=== PATIENT | male | born 1990 | race Hispanic/Latino ===

== ENCOUNTER 2020-12-18 17:27 | Emergency (ER) | payer OTHER ==
[2020-12-18 18:13] LABS: Absolute Lymphocytes (CBC) 1.1 K/uL (0.7-4.9); Basophils % 0.4 % (0-1.3); Hematocrit 39.5 % (39.6-49.0); Lymphocytes % 11.4 % (15.3-44.8); MPV 8.2 fL (7.6-11.3); RBC Red Blood Cell Count 4.41 M/uL (4.33-5.43)
[2020-12-18 18:19] LABS: Protime INR 1.06
--- NOTE | 2020-12-18 18:24 | RAD REPORT ---
EXAM DESCRIPTION: CT - CTHCSPWOC - 12/18/2020 6:08 pm CLINICAL HISTORY: Trauma, head and neck injury. seizure, head injury COMPARISON: No comparisons TECHNIQUE: Axial 5 mm thick images of the head were obtained. Axial 2 mm thick images of the cervical spine were obtained with sagittal and coronal reconstruction images generated and reviewed. All CT scans are performed using dose optimization technique as appropriate and may include automated exposure control or mA/KV adjustment according to patient size. FINDINGS: CT HEAD WITHOUT CONTRAST: No acute hemorrhage, hydrocephalus or extra-axial collection is identified.No areas of brain edema or midline shift. The paranasal sinuses and mastoids are clear.The calvarium is intact. CT CERVICAL SPINE WITHOUT CONTRAST: No fracture or subluxation.No prevertebral soft tissues swelling is identified. IMPRESSION: No acute intracranial or cervical spine findings.
[2020-12-18 18:31] LABS: ALT/SGPT 101 U/L (12-78); AST/SGOT 39 U/L (15-37); Alkaline Phosphatase 83 U/L (45-117); BUN Blood Urea Nitrogen 13 mg/dL (7-18); Bicarbonate 28 mmol/L (21-32); Bilirubin Direct < 0.1 mg/dL (0-0.2); Bilirubin Total 0.3 mg/dL (0.2-1.0); Glucose Level 95 mg/dL (74-106); Potassium 3.9 mmol/L (3.5-5.1); Protein, Total 7.3 g/dL (6.4-8.2); Sodium Level 142 mmol/L (136-145)
[2020-12-18 19:49] LABS: Urine Blood Trace-intact (Negative); Urine Glucose Negative (Negative); Urine Protein Negative (Negative); Urine Specific Gravity 1.015 (1.005-1.030); Urine pH 7.5 (5.0-7.0)
[2020-12-18] MEDS ORDERED: ACETAMINOPHEN 500 MG TAB ONE (21:13)
[2020-12-18] MEDS ORDERED: NA CHLORIDE 0.9% 1,000 ML ONE (21:30)
[2020-12-18 22:25] LABS: Barbiturates NEGATIVE (NEGATIVE); Benzodiazepines NEGATIVE (NEGATIVE); Cocaine NEGATIVE (NEGATIVE); METHAMPHETAM NEGATIVE (NEGATIVE); Methadone NEGATIVE (NEGATIVE); Opiates NEGATIVE (NEGATIVE); Phencyclidine NEGATIVE (NEGATIVE); THC Cannibis NEGATIVE (NEGATIVE)
--- NOTE | 2020-12-18 22:36 | EDPHYS ---
Physician Documentation [facility] Name: Gera Stephens Age: 30 yrs Sex: Male : 1990 Arrival Date: 12/18/2020 Time: 17:32 Bed 30 Private MD: ED Physician Humberto Rossi HPI: 12/18 17:46 This 30 yrs old Male presents to ER via EMS with complaints of Seizure. jmm 17:46 Character of seizure(s): Unknown. Seizure onset: just prior to arrival. Associated jmm injury: Head/face:. Current symptoms: headache, that is mild. This is a 30-year-old male that presents to the ED with complaints of head injury. Patient believes he had a seizure. Denies other known injury.. - Immunization history:: Last tetanus immunization: up to date Flu vaccine is up to date. - Social history:: Smoking status: Patient denies any tobacco usage or history of. ROS: 17:46 Constitutional: Negative for fever, chills, and weight loss, Cardiovascular: Negative jmm for chest pain, palpitations, and edema, Respiratory: Negative for shortness of breath, cough, wheezing, and pleuritic chest pain. 17:46 Neuro: Positive for headache. 17:46 All other systems are negative. Exam: 17:46 Constitutional: This is a well developed, well nourished patient who is awake, alert, jmm and in no acute distress. 17:46 Eyes: EOMI, no conjunctival erythema appreciated ENT: Moist Mucus Membranes Neck: Trachea midline, Supple Chest/axilla: Normal chest wall appearance and motion. Cardiovascular: Regular rate and rhythm. No edema appreciated Respiratory: Normal respirations, no respiratory distress appreciated Abdomen/GI: Non distended, soft Back: Normal ROM Skin: General appearance color normal MS/ Extremity: Moves all extremities, no obvious deformities appreciated, no edema noted to the lower extremities 17:46 Head/face: Noted is abrasion(s), that are mild, of the right occipital area. 17:46 Neuro: Orientation: is normal, Mentation: is normal, Memory: is normal. Vital Signs: 17:33 BP 123 / 70; Pulse 67; Resp 16; Pulse Ox 100% on R/A; Weight 61.23 kg; Height 5 ft. 7 zb in. (170.18 cm); Pain 7/10; 18:56 Temp 98.0; ll1 22:47 BP 120 / 68; Pulse 70; Resp 18; Pulse Ox 99% ; ea 17:33 Body Mass Index 21.14 (61.23 kg, 170.18 cm) zb Charlotte Coma Score: 18:04 Eye Response: spontaneous(4). Verbal Response: oriented(5). Motor Response: obeys ll1 commands(6). Total: 15. MDM: 17:46 Patient medically screened. [facility] 22:35 Data reviewed: vital signs, nurses notes. Counseling: I had a detailed discussion with caesar the patient and/or guardian regarding: the historical points, exam findings, and any diagnostic results supporting the discharge/admit diagnosis, lab results, radiology results, the need for outpatient follow up, to return to the emergency department if symptoms worsen or persist or if there are any questions or concerns that arise at home. ED course: Labs and radiologic studies are unremarkable. Patient has had no seizure type activity while in the ED. Patient is advised to follow-up with his primary care provider and otherwise given strict return precautions. Patient understood and agrees plan of care.. 12/18 17:46 Order name: Acetaminophen [facility] 12/18 17:46 Order name: Basic Metabolic Panel [facility] 12/18 17:46 Order name: CBC with Diff; Complete Time: 18:19 [facility] 12/18 17:46 Order name: ETOH Level; Complete Time: 18:48 [facility] 12/18 17:46 Order name: Hepatic Function; Complete Time: 18:48 [facility] 12/18 17:46 Order name: PT-INR; Complete Time: 18:27 [facility] 12/18 17:46 Order name: CT Head C Spine; Complete Time: 18:27 [facility] 12/18 17:46 Order name: Ptt, Activated; Complete Time: 18:27 [facility] 12/18 17:46 Order name: Salicylate; Complete Time: 19:43 [facility] 12/18 17:46 Order name: Urine Drug Screen; Complete Time: 22:26 [facility] 12/18 17:46 Order name: Acetaminophen Level; Complete Time: 18:48 [facility] 12/18 17:46 Order name: Basic Metabolic Panel; Complete Time: 18:48 [facility] 12/18 19:49 Order name: Urine Dipstick-Ancillary; Complete Time: 19:52 [facility] 12/18 17:46 Order name: EKG; Complete Time: 17:47 [facility] 12/18 17:46 Order name: EKG - Nurse/Tech; Complete Time: 18:44 [facility] 12/18 17:46 Order name: IV Saline Lock; Complete Time: 17:47 [facility] 12/18 17:46 Order name: Labs collected and sent; Complete Time: 17:47 [facility] 12/18 17:46 Order name: Suicide Screening ([place]); Complete Time: 18:40 [facility] 12/18 17:46 Order name: Urine Dipstick-Ancillary (obtain specimen); Complete Time: 20:00 [facility] Administered Medications: 21:09 Drug: NS 0.9% 1000 ml Route: IV; Rate: 1 bolus; Site: left antecubital; ea 22:00 Follow up: Response: No adverse reaction; IV Status: Completed infusion; IV Intake: zb 1000ml Disposition: 12/19 07:01 Co-signature as Attending Physician, Humberto Rossi MD. rn Disposition Summary: 12/18/20 22:36 Discharge Ordered Location: Home [facility] Condition: Stable [facility] Diagnosis - Acute head injury [facility] Followup: [facility] - With: Private Physician - When: 2 - 3 days - Reason: Recheck today's complaints, Continuance of care, Re-evaluation by your physician Discharge Instructions: - Discharge Summary Sheet [facility] - Head Injury, Adult [facility] Forms: - Medication Reconciliation Form [facility] - Thank You Letter [facility] - Antibiotic Education [facility] - Prescription Opioid Use [facility] Signatures: Dispatcher [employer] [facility] Ace Jorgensen PA PA [facility] Humberto Rossi MD MD rn Antunez, Elena RN Frieda Lerma ea, RN RN Vanda Wilde RN
--- NOTE | 2020-12-18 22:36 | ER ---
Nurse's Notes [facility] Name: Gera Stephens Age: 30 yrs Sex: Male : 1990 Arrival Date: 12/18/2020 Time: 17:32 Bed 30 Private MD: Diagnosis: Acute head injury Presentation: 12/18 17:33 Chief complaint: EMS states: pt from [facility], had a seizure and C-collar was sv placed. Hematoma to back of the head. 18G L AC BS-120, vitals WNL. Coronavirus screen: Client denies travel out of the [place] in the last 14 days. At this time, the client does not indicate any symptoms associated with coronavirus-19. Ebola Screen: No symptoms or risks identified at this time. Risk Assessment: Do you want to hurt yourself or someone else? Patient reports no desire to harm self or others. Onset of symptoms was December 18, 2020. 17:33 Method Of Arrival: EMS: [facility] sv 17:33 Acuity: ROBERTA 3 sv 18:55 Initial Sepsis Screen: Does the patient meet any 2 criteria? No. Patient's initial ll1 sepsis screen is negative. Does the patient have a suspected source of infection? No. Patient's initial sepsis screen is negative. - Immunization history:: Last tetanus immunization: up to date Flu vaccine is up to date. - Social history:: Smoking status: Patient denies any tobacco usage or history of. Screenin:03 Abuse screen: Denies threats or abuse. Nutritional screening: No deficits noted. ll1 Tuberculosis screening: No symptoms or risk factors identified. Fall Risk IV access (20 points). Total Goldman Fall Scale indicates No Risk (0-24 pts). Assessment: 18:05 General: Appears in no apparent distress. Behavior is calm, cooperative, appropriate ll1 for age. Pain: Complains of pain in posterior head Quality of pain is described as aching. Neuro: Level of Consciousness is awake, alert, obeys commands, Oriented to person, place, time, situation, Appropriate for age [employer] are equal bilaterally Moves all extremities. Full function Reports headache had seizure activity today. Derm: Reports hematoma back of head. Injury Description: Head injury. 21:05 Reassessment: Patient and/or family updated on plan of care and expected duration. Pain ea level reassessed. Patient is alert, oriented x 3, equal unlabored respirations, skin warm/dry/pink. Awaiting on UDS. 22:46 Reassessment: Patient and/or family updated on plan of care and expected duration. Pain ea level reassessed. Patient is alert, oriented x 3, equal unlabored respirations, skin warm/dry/pink. Discharge instruction given to patient and guards, pt left ED ambulatory accompanied by guards. Vital Signs: 17:33 BP 123 / 70; Pulse 67; Resp 16; Pulse Ox 100% on R/A; Weight 61.23 kg; Height 5 ft. 7 zb in. (170.18 cm); Pain 7/10; 18:56 Temp 98.0; ll1 22:47 BP 120 / 68; Pulse 70; Resp 18; Pulse Ox 99% ; ea 17:33 Body Mass Index 21.14 (61.23 kg, 170.18 cm) zb Yohana Coma Score: 18:04 Eye Response: spontaneous(4). Verbal Response: oriented(5). Motor Response: obeys ll1 commands(6). Total: 15. ED Course: 17:32 Patient arrived in ED. sv 17:33 Vanda Nicole RN is Primary Nurse. zb 17:33 Ace Jorgensen PA is PHCP. jmm 17:33 Humberto Rossi MD is Attending Physician. jmm 17:35 Triage completed. sv 17:35 Arm band placed on. sv 18:02 Maintain EMS IV. Dressing intact. Good blood return noted. Site clean \T\ dry. Gauge \T\ ll 1 site: 18 R AC. 18:03 Fall risk band placed. Call light in reach. Side rails up X2. Security at bedside. ll1 Seizure precautions initiated. Pulse ox on. Cardiac monitoring not applicable on this patient. 18:08 CT Head C Spine In Process Unspecified. EDMS 18:43 Acetaminophen Sent. sv 18:43 Basic Metabolic Panel Sent. sv 22:46 No provider procedures requiring assistance completed. IV discontinued, intact, ea bleeding controlled, No redness/swelling at site. Pressure dressing applied. Administered Medications: 21:09 Drug: NS 0.9% 1000 ml Route: IV; Rate: 1 bolus; Site: left antecubital; ea 22:00 Follow up: Response: No adverse reaction; IV Status: Completed infusion; IV Intake: zb 1000ml Intake: 22:00 IV: 1000ml; Total: 1000ml. zb Outcome: 22:36 Discharge ordered by MD. maynard 22:46 Discharged to Law Enforcement ea 22:46 Condition: stable 22:46 Discharge instructions given to patient, Instructed on discharge instructions, follow up and referral plans. Demonstrated understanding of instructions, follow-up care. 22:47 Patient left the ED. ea Signatures: Dispatcher [employer] Karma Mayfield RN RN sv Mickail, Joel, PA PA jmm Antunez, Elena RN Frieda Lerma ea RN SACHIN ll1 Vanda Nicole RN SACHIN mcdowell
[2020-12-18 23:50] VITALS: TEMP 98
[2020-12-18 23:51] VITALS: BP 120/68; O2SAT 99
== END 2020-12-18 22:47 | disposition home or self-care (01) ==
LOC: ER 17:27
DX: S00.81XA Abrasion of other part of head, initial encounter (principal)
CPT/HCPCS: 36415; 70450; 72125; 80048; 80076; 80307; 80320; 80329; 81003; 85025; 85610; 85730; 93005; 96360; 99285; J7030